=== PATIENT | male | born 1985 | race American Indian/Alaskan Native ===

== ENCOUNTER 2020-07-01 21:57 | Inpatient (IN) | payer OTHER ==
[2020-07-02 01:08] LABS: Bilirubin,Urine NEG (Negative); Blood,Urine SM (Negative); Color,Urine Yellow (Yellow); Mucus,Urine FEW /HPF; Protein,Urine <15 mg/dL mg/dL (Negative); Urobilinogen,Urine < 2.0 mg/dL (<2.0)
[2020-07-02 01:09] LABS: Basophils % (Auto) 0.3 % (0.0-1.8); Eosinophils # (Auto) 0.2 K/mm3 (0.0-0.4); Eosinophils % (Auto) 1.2 % (0.0-4.3); Hematocrit 45.7 % (35.5-45.6); Hemoglobin 15.3 gm/dl (11.8-15.2); Lymphocytes # (Auto) 1.5 K/mm3 (1.2-5.4); Lymphocytes % (Auto) 9.3 % (13.4-35.0); Mean Corpuscular HGB Conc 33 % (32-34); Mean Corpuscular Volume 86 fl (84-94); Monocytes # (Auto) 1.5 K/mm3 (0.0-0.8); Monocytes % (Auto) 9.2 % (0.0-7.3); Platelet Count 288 K/mm3 (140-440); Red Cell Distribution Width 13.2 % (13.2-15.2)
[2020-07-02 01:27] LABS: Alanine Aminotransferase 80 units/L (7-56); Albumin 4.8 g/dL (3.9-5); BUN/Creatinine Ratio 14; Blood Urea Nitrogen 11 mg/dL (9-20); Calcium 10.1 mg/dL (8.4-10.2); Hemolysis Index 10
[2020-07-02] MEDS ORDERED: SODIUM CHLORIDE 0.9% 1000 ML 1,000 ML IV ONE ×3 (01:45→02:56)
[2020-07-02] MEDS ORDERED: ONDANSETRON 4 MG/2 ML INJ IV ONE (01:45)
[2020-07-02] MEDS ORDERED: MORPHINE 4 MG/1 ML INJ IV ONE (01:45)
--- NOTE | 2020-07-02 02:45 | Cat Scan Report ---
CT ABDOMEN AND PELVIS WITH CONTRAST HISTORY: Right lower quadrant abdominal pain COMPARISON: None TECHNIQUE: Routine abdominal and pelvic CT exam performed following intravenous contrast administrat ion. The patient received 100 ml IV Omnipaque 300. All CT scans at this location are performed using CT dose reduction for ALARA by means of automated exposure control. FINDINGS: CT ABDOMEN: Lung Bases: No significant abnormality. Liver: No significant abnormality. Biliary: No significant abnormality. Spleen: No significant abnormality. Unenlarged. Pancreas: No significant abnormality. Adrenals: No significant abnormality. Kidneys: No significant abnormality. Lymphatics: No lymphadenopathy. Vasculature: No significant abnormality. Bowel/Peritoneum: There is wall thickening and inflammatory fat stranding of the appendix consistent with appendicitis. There is no evidence of perforation or other complication. CT PELVIC: : No significant abnormality. Lymphatics: No lymphadenopathy. Osseous Structures: No aggressive appearing osseous lesions. Additional Findings: None IMPRESSION: 1. Acute appendicitis without complication. Signer Name: Too Fowler MD Signed: 07/02/2020 2:40 AM Workstation Name: [email or web address]
[2020-07-02] MEDS ORDERED: PIPERACIL/TAZOBACTA 4.5/NS 100 4.5 GM/100 ML VIAL IV ONE (02:48)
[2020-07-02] MEDS ORDERED: ACETAMINOPHEN 500 MG TAB PO ONE (02:55)
--- NOTE | 2020-07-02 03:14 | Emergency Department Report ---
ED Abdominal Pain HPI - General Chief Complaint: Abdominal Pain Stated Complaint: ABD PAINS Time Seen by Provider: 07/02/20 01:18 Source: patient Mode of arrival: Ambulatory Limitations: No Limitations - History of Present Illness Initial Comments: Patient is a 35-year-old male who presents for right lower quadrant pain x3 days. Pain is described as 7/10 sharp with no radiation. Pain is exacerbated by p.o. intake and movement. Pain is relieved by nothing tried. Patient denies medical history, denies smoking has occasional drinker. Last p.o. intake was Tuesday 3 days ago. Last vomiting was this afternoon clear liquid per patient. Patient works as construction spring. MD Complaint: abdominal pain Migration to: no migration Severity scale (0 -10): 3 - Related Data Allergies Allergy/AdvReac Type Severity Reaction Status Date / Time No Known Allergies Allergy Unverified 07/01/20 23:46 ED Review of Systems ROS: Stated complaint: ABD PAINS Other details as noted in HPI Constitutional: chills, fever Eyes: denies: eye pain, eye discharge, vision change ENT: denies: ear pain, throat pain Respiratory: denies: cough, shortness of breath, wheezing Cardiovascular: denies: chest pain, palpitations Endocrine: no symptoms reported Gastrointestinal: abdominal pain, nausea, vomiting. denies: diarrhea, constipation, melena Genitourinary: denies: urgency, dysuria Musculoskeletal: denies: back pain, joint swelling, arthralgia Skin: denies: rash, lesions Neurological: denies: headache, weakness, paresthesias Psychiatric: denies: anxiety, depression Hematological/Lymphatic: denies: easy bleeding, easy bruising ED Past Medical Hx - Past Medical History Previous Medical History?: No - Surgical History Past Surgical History?: No - Social History Smoking Status: Never Smoker Substance Use Type: None ED Physical Exam - General Limitations: No Limitations General appearance: alert, in no apparent distress - Head Head exam: Present: atraumatic, normocephalic - Eye Eye exam: Present: normal appearance, EOMI Pupils: Present: normal accommodation - ENT ENT exam: Present: mucous membranes moist - Neck Neck exam: Present: normal inspection, full ROM. Absent: tenderness - Respiratory Respiratory exam: Present: normal lung sounds bilaterally. Absent: respiratory distress, wheezes, stridor, chest wall tenderness - Cardiovascular Cardiovascular Exam: Present: regular rate, normal rhythm, normal heart sounds - GI/Abdominal GI/Abdominal exam: Present: soft, tenderness (RLQ ), rebound, normal bowel sounds. Absent: guarding, rigid, bruit, hernia - Expanded GI/Abdominal Exam Expanded GI/Abdominal exam: Present: psoas sign, obturator sign, heel tap sign, Rovsing's sign, tenderness at [place]. Absent: Son's sign, ascites - Rectal Rectal exam: Present: deferred - Extremities Exam Extremities exam: Present: normal inspection - Back Exam Back exam: Present: normal inspection, full ROM. Absent: tenderness, CVA tenderness (R), CVA tenderness (L), vertebral tenderness - Neurological Exam Neurological exam: Present: alert, oriented X3, CN II-XII intact - Psychiatric Psychiatric exam: Present: normal affect, normal mood - Skin Skin exam: Present: warm, dry, intact, normal color. Absent: rash ED Course Vital Signs 07/01/20 23:43 Temperature 101.9 F H Pulse Rate 81 Respiratory 18 Rate Blood Pressure 166/102 O2 Sat by Pulse 100 Oximetry ED Medical Decision Making - Lab Data Result diagrams: 07/02/20 00:29 07/02/20 00:29 Labs 07/01/20 07/02/20 07/02/20 Unknown 00: 00:29 WBC 16.5 H RBC 5.30 H Hgb 15.3 H Hct 45.7 H MCV 86 MCH 29 MCHC 33 RDW 13.2 Plt Count 288 Lymph % (Auto) 9.3 L [place] % (Auto) 9.2 H Eos % (Auto) 1.2 Baso % (Auto) 0.3 Lymph # (Auto) 1.5 [place] # (Auto) 1.5 H Eos # (Auto) 0.2 Baso # (Auto) 0.0 Seg Neutrophils % 80.0 H Seg Neutrophils # 13.2 H Sodium 141 Potassium 4.1 Chloride 101.2 Carbon Dioxide 27 Anion Gap 17 BUN 11 Creatinine 0.8 Estimated GFR > 60 BUN/Creatinine Ratio 14 Glucose 112 H Lactic Acid Calcium 10.1 Total Bilirubin 0.80 AST 52 H ALT 80 H Alkaline Phosphatase 74 Total Protein 8.3 H Albumin 4.8 Albumin/Globulin Ratio 1.4 Lipase 28 Urine Color Yellow Urine Turbidity Clear Urine pH 7.0 Ur Specific [place] 1.010 Urine Protein <15 mg/dl Urine Glucose (UA) Neg Urine Ketones Neg Urine Blood Sm Urine Nitrite Neg Urine Bilirubin Neg Urine Urobilinogen < 2.0 Ur Leukocyte Esterase Neg Urine WBC (Auto) 1.0 Urine RBC (Auto) 4.0 U Epithel Cells (Auto) < 1.0 Urine Mucus Few 07/02/20 02:14 WBC RBC Hgb Hct MCV MCH MCHC RDW Plt Count Lymph % (Auto) [place] % (Auto) Eos % (Auto) Baso % (Auto) Lymph # (Auto) [place] # (Auto) Eos # (Auto) Baso # (Auto) Seg Neutrophils % Seg Neutrophils # Sodium Potassium Chloride Carbon Dioxide Anion Gap BUN Creatinine Estimated GFR BUN/Creatinine Ratio Glucose Lactic Acid 1.70 Calcium Total Bilirubin AST ALT Alkaline Phosphatase Total Protein Albumin Albumin/Globulin Ratio Lipase Urine Color Urine Turbidity Urine pH Ur Specific [place] Urine Protein Urine Glucose (UA) Urine Ketones Urine Blood Urine Nitrite Urine Bilirubin Urine Urobilinogen Ur Leukocyte Esterase Urine WBC (Auto) Urine RBC (Auto) U Epithel Cells (Auto) Urine Mucus - Radiology Data Radiology results: report reviewed, image reviewed Findings Reporting MD: Too Fowler Dictation Time: July 02, 2020 01:40 6Th Grade Teacher: Not available Chest Pain Coordinator Date: CT ABDOMEN AND PELVIS WITH CONTRAST HISTORY: Right lower quadrant abdominal pain COMPARISON: None TECHNIQUE: Routine abdominal and pelvic CT exam performed following intravenous contrast administration. The patient received 100 ml IV Omnipaque 300. All CT scans at this location are performed using CT dose reduction for ALARA by means of automated exposure control. FINDINGS: CT ABDOMEN: Lung Bases: No significant abnormality. Liver: No significant abnormality. Biliary: No significant abnormality. Spleen: No significant abnormality. Unenlarged. Pancreas: No significant abnormality. Adrenals: No significant abnormality. Kidneys: No significant abnormality. Lymphatics: No lymphadenopathy. Vasculature: No significant abnormality. Bowel/Peritoneum: There is wall thickening and inflammatory fat stranding of the appendix consistent with appendicitis. There is no evidence of perforation or other complication. CT PELVIC: : No significant abnormality. Lymphatics: No lymphadenopathy. Osseous Structures: No aggressive appearing osseous lesions. Additional Findings: None IMPRESSION: 1. Acute appendicitis without complication. Signer Name: Too Fowler MD Signed: 07/02/2020 1:40 AM Workstation Name: [id number] - Medical Decision Making CT abdomen pelvis consistent with acute appendicitis, CBC with WBCs at 16, patient is febrile at 101.9. Nausea is controlled with Zofran IV pain is controlled with morphine 4 mg IV patient has received 2 L normal saline will maintain continuous IV fluids at 125 cc an hour. Lactic acid is 1.7. Consulted general surgery Dr. Burnette. Consult recommendation admit to hospitalist will take to surgery in a.m. Advises Zosyn IV piggyback. Pain control continues IV fluids n.p.o. Discussed treatment plan in depth with patient. Patient verbalizes agreement and understanding with same. Consulted hospitalist at this time for admission Dr Cast advises: Pt care handoff to ED colleague at this time. pt verbalizes and agreement and understanding with treatment plan. Awaiting Surgery Consult with Dr Burnette in am for for acute appendicitis. Critical care attestation.: If time is entered above; I have spent that time in minutes in the direct care of this critically ill patient, excluding procedure time. ED Disposition Clinical Impression: Appendicitis, acute Qualifiers: Acute appendicitis type: unspecified acute appendicitis type Qualified Code(s): K35.80 - Unspecified acute appendicitis Disposition: OP ADMIT IP TO THIS HOSP Is pt being admited?: Yes Does the pt Need Aspirin: No Condition: Stable
[2020-07-02] MEDS ORDERED: ONDANSETRON 4 MG/2 ML INJ IV PRN ×2 (04:48→13:53)
[2020-07-02] MEDS ORDERED: ACETAMINOPHEN 325 MG TAB PO PRN (04:48)
--- NOTE | 2020-07-02 04:53 | History and Physical Report ---
History of Present Illness Date of examination: 07/02/20 Date of admission: 07/02/20 03:05 Chief complaint: Abdominal pain History of present illness: 35-year-old male presented to the emergency room today complaining of abdominal pain. Abdominal pain is said to be in the lower abdomen and has been ongoing for the past 3 days. He has had associated nausea and vomiting and he has not been able to tolerate oral intake. Abdominal pain is made worse by p.o. intake. He denies any fever or chills, no chest pain or shortness of breath, denies any diarrhea or constipation, denies any hematuria or dysuria, denies any bright red blood per rectum. Patient denies any sick contacts and no recent travel. Denies any contact with anyone with COVID-19. Upon arrival in the emergency room patient had a fever 101.9 F. He had a leukocytosis of 16.5 Work-up today including CT scan of the abdomen and pelvis reveals acute appendicitis without any complications. Dr. Burnette the general surgeon has been consulted by the ER physician. Patient has been placed on IV fluid and empiric IV antibiotics and made n.p.o. Past History Past Medical History: No medical history Past Surgical History: No surgical history Social history: no significant social history Family history: no significant family history Medications and Allergies Allergies Allergy/AdvReac Type Severity Reaction Status Date / Time No Known Allergies Allergy Verified 07/02/20 04:50 Active Meds: Active Medications Sodium Chloride (Nacl 0.9% 1000 Ml) 1,000 mls @ 125 mls/hr IV ONCE ONE Stop: 07/02/20 10:55 Review of Systems Constitutional: no fever, no chills Ears, nose, mouth and throat: no nasal congestion, no sore throat Cardiovascular: no chest pain, no palpitations Respiratory: no cough, no shortness of breath Gastrointestinal: abdominal pain, nausea, vomiting, no diarrhea Genitourinary Male: no dysuria, no hematuria, no flank pain Musculoskeletal: no neck pain, no low back pain Integumentary: no rash, no pruritis Neurological: no headaches, no confusion Psychiatric: no anxiety, no depression Exam - Constitutional Vitals: Temp Pulse Resp BP Pulse Ox 99.4 F 54 L 16 132/83 99 07/02/20 04:37 07/02/20 04:37 07/02/20 04:37 07/02/20 04:37 07/02/20 04:37 General appearance: Present: no acute distress, well-nourished - EENT Eyes: Present: PERRL, EOM intact. Absent: scleral icterus ENT: hearing intact, clear oral mucosa, dentition normal - Neck Neck: Present: supple, normal ROM - Respiratory Respiratory effort: normal Respiratory: bilateral: CTA - Cardiovascular Rhythm: regular Heart Sounds: Present: S1 & S2. Absent: gallop, systolic murmur, diastolic murmur, rub - Extremities Extremities: no ischemia, pulses intact, pulses symmetrical, No edema, Full ROM Peripheral Pulses: within normal limits - Abdominal General gastrointestinal: Present: soft, tender, normal bowel sounds. Absent: mass Localized gastrointestinal: tender: RLQ, guarding: RLQ - Integumentary Integumentary: Present: clear, warm, dry - Musculoskeletal Musculoskeletal: strength equal bilaterally - Psychiatric Psychiatric: appropriate mood/affect, intact judgment & insight, memory intact, cooperative - Neurologic Neurologic: CNII-XII intact, no focal deficits, moves all extremities Results - Labs CBC & Chem 7: 07/02/20 00:29 07/02/20 00:29 Labs: Abnormal lab results 07/02/20 07/02/20 Range/Units 00:29 00:29 WBC 16.5 H (4.5-11.0) K/mm3 RBC 5.30 H (3.65-5.03) M/mm3 Hgb 15.3 H (11.8-15.2) gm/dl Hct 45.7 H (35.5-45.6) % Lymph % (Auto) 9.3 L (13.4-35.0) % [place] % (Auto) 9.2 H (0.0-7.3) % [place] # (Auto) 1.5 H (0.0-0.8) K/mm3 Seg Neutrophils % 80.0 H (40.0-70.0) % Seg Neutrophils # 13.2 H (1.8-7.7) K/mm3 Glucose 112 H (75-100) mg/dL AST 52 H (5-40) units/L ALT 80 H (7-56) units/L Total Protein 8.3 H (6.3-8.2) g/dL Assessment and Plan - Patient Problems (1) Acute appendicitis Current Visit: Yes Status: Acute Qualifiers: Acute appendicitis type: unspecified acute appendicitis type Qualified Code(s): K35.80 - Unspecified acute appendicitis Plan to address problem: Patient has been made n.p.o. Will place patient on IV fluid and empiric IV antibiotics. General surgeon has been consulted for evaluation and recommendation. (2) DVT prophylaxis Current Visit: Yes Status: Acute Plan to address problem: Placed on sequential compression device. (3) Full code status Current Visit: Yes Status: Acute
[2020-07-02] MEDS: MORPHINE 2 MG/1 ML INJ IV PRN (06:13)
[2020-07-02] MEDS: SODIUM CHLORIDE 0.9% 1000 ML 1,000 ML IV SCH ×2 (06:13→18:04)
[2020-07-02] MEDS: PIPERACIL/TAZOBACTA 4.5/NS 100 4.5 GM/100 ML VIAL IV SCH ×2 (09:17→18:04)
[2020-07-02] MEDS ORDERED: SCOPOLAMINE TRANSDERMAL PATCH 72 HR TD NR (10:40)
--- NOTE | 2020-07-02 10:41 | Consultation ---
History of Present Illness Consult date: 07/02/20 Reason for consult: abdominal pain (35 yo male with 2 days of constant RLQ pain. Pain began in the umbilical area. No nausea, vomiting, fever, chills, melena or hematochezia. Pain is made worse by eating.) Past History Past Medical History: No medical history Past Surgical History: No surgical history Social history: no significant social history Family history: no significant family history Medications and Allergies Allergies Allergy/AdvReac Type Severity Reaction Status Date / Time No Known Allergies Allergy Verified 07/02/20 04:50 Home Medications Medication Instructions Recorded Confirmed Last Taken Type No Known Home Medications [No 07/02/20 07/02/20 Unknown History Reported Home Medications] Active Meds: Active Medications Acetaminophen (Tylenol) 650 mg PO Q4H PRN PRN Reason: Pain MILD(1-3)/Fever >100.5/KEYS Heparin Sodium (Porcine) (Heparin) 5,000 unit SUB-Q Q12HR STACI Sodium Chloride (Nacl 0.9% 1000 Ml) 1,000 mls @ 125 mls/hr IV ONCE ONE Stop: 07/02/20 10:55 Last Admin: 07/02/20 09:24 Dose: Not Given Documented by: Sodium Chloride (Nacl 0.9% 1000 Ml) 1,000 mls @ 125 mls/hr IV DIRECT STACI Last Admin: 07/02/20 06:13 Dose: 125 mls/hr Documented by: Piperacillin Sod/Tazobactam Sod (Zosyn/Ns 4.5gm/100ml) 4.5 gm in 100 mls @ 200 mls/hr IV Q8H STACI; Protocol Last Admin: 07/02/20 09:17 Dose: 200 mls/hr Documented by: Morphine Sulfate (Morphine) 2 mg IV Q4H PRN PRN Reason: Pain, Moderate (4-6) Last Admin: 07/02/20 06:13 Dose: 2 mg Documented by: Ondansetron HCl (Zofran) 4 mg IV Q8H PRN PRN Reason: Nausea And Vomiting Sodium Chloride (Sodium Chloride Flush Syringe 10 Ml) 10 ml IV BID STACI Last Admin: 07/02/20 09:18 Dose: 10 ml Documented by: Sodium Chloride (Sodium Chloride Flush Syringe 10 Ml) 10 ml IV PRN PRN PRN Reason: LINE FLUSH Review of Systems All systems: negative (none) Exam Vital Signs Temp Pulse Resp BP Pulse Ox 101.9 F H 81 18 166/102 100 07/01/20 23:43 07/01/20 23:43 07/01/20 23:43 07/01/20 23:43 07/01/20 23:43 - General physical appearance Positive: well developed, well nourished, no distress - Eyes Positive: PERRL, normal occular movement - ENT Positive: normal pinna, normal nares, normal mucosa, no hearing loss, no congestion - Neck Positive: no masses, no bruits, trachea midline, no venous distension - Respiratory Positive: normal expansion, normal respiratory effort, clear to auscultation - Cardiovascular Rhythm: regular Heart Sounds: Present: S1 & S2. Absent: rub, click - Extremities Extremities: no ischemia, pulses symmetrical, No edema - Breasts Breasts: deferred - Abdomen Abdomen: Present: soft, bowel sounds hypoactive (Mildly tender in the RLQ without rebound or guarding) - Genitourinary Male Genitourinary: deferred - Integumentary no rash, no growths, no abnormal pigmentation - Neurologic Neurologic: alert and oriented to time, place and person, motor strength and sensation are grossly intact - Musculoskeletal normal gait, normal posture - Psychiatric Psychiatric: appropriate mood/affect, intact judgment & insight Results - Labs 07/02/20 00:29 07/02/20 00:29 Abnormal lab results 07/02/20 07/02/20 Range/Units 00:29 00:29 WBC 16.5 H (4.5-11.0) K/mm3 RBC 5.30 H (3.65-5.03) M/mm3 Hgb 15.3 H (11.8-15.2) gm/dl Hct 45.7 H (35.5-45.6) % Lymph % (Auto) 9.3 L (13.4-35.0) % [place] % (Auto) 9.2 H (0.0-7.3) % [place] # (Auto) 1.5 H (0.0-0.8) K/mm3 Seg Neutrophils % 80.0 H (40.0-70.0) % Seg Neutrophils # 13.2 H (1.8-7.7) K/mm3 Glucose 112 H (75-100) mg/dL AST 52 H (5-40) units/L ALT 80 H (7-56) units/L Total Protein 8.3 H (6.3-8.2) g/dL Diabetes panel 07/02/20 Range/Units 00:29 Sodium 141 (137-145) mmol/L Potassium 4.1 (3.6-5.0) mmol/L Chloride 101.2 (98-107) mmol/L Carbon Dioxide 27 (22-30) mmol/L BUN 11 (9-20) mg/dL Creatinine 0.8 (0.8-1.3) mg/dL Glucose 112 H (75-100) mg/dL Calcium 10.1 (8.4-10.2) mg/dL AST 52 H (5-40) units/L ALT 80 H (7-56) units/L Alkaline Phosphatase 74 (35-129) units/L Total Protein 8.3 H (6.3-8.2) g/dL Albumin 4.8 (3.9-5) g/dL Calcium panel 07/02/20 Range/Units 00:29 Calcium 10.1 (8.4-10.2) mg/dL Albumin 4.8 (3.9-5) g/dL Pituitary panel 07/02/20 Range/Units 00:29 Sodium 141 (137-145) mmol/L Potassium 4.1 (3.6-5.0) mmol/L Chloride 101.2 (98-107) mmol/L Carbon Dioxide 27 (22-30) mmol/L BUN 11 (9-20) mg/dL Creatinine 0.8 (0.8-1.3) mg/dL Glucose 112 H (75-100) mg/dL Calcium 10.1 (8.4-10.2) mg/dL Adrenal panel 07/02/20 Range/Units 00:29 Sodium 141 (137-145) mmol/L Potassium 4.1 (3.6-5.0) mmol/L Chloride 101.2 (98-107) mmol/L Carbon Dioxide 27 (22-30) mmol/L BUN 11 (9-20) mg/dL Creatinine 0.8 (0.8-1.3) mg/dL Glucose 112 H (75-100) mg/dL Calcium 10.1 (8.4-10.2) mg/dL Total Bilirubin 0.80 (0.1-1.2) mg/dL AST 52 H (5-40) units/L ALT 80 H (7-56) units/L Alkaline Phosphatase 74 (35-129) units/L Total Protein 8.3 H (6.3-8.2) g/dL Albumin 4.8 (3.9-5) g/dL - Imaging Additional studies: CT abd/pelvis - C/w appendicitis Assessment and Plan - Patient Problems (1) Acute appendicitis Current Visit: Yes Status: Acute Qualifiers: Acute appendicitis type: unspecified acute appendicitis type Qualified Code(s): K35.80 - Unspecified acute appendicitis Plan to address problem: 1) NPO 2) IV Zosyn 3) Lap appy when OR room is available 4) Repeat CBC & BMP 5) SQ Heparin
[2020-07-02] MEDS: HEPARIN 5,000 UNIT/1 ML VIAL SUB-Q SCH ×2 (10:49→22:17)
[2020-07-02 11:11] LABS: Basophils % (Auto) 0.3 % (0.0-1.8); Eosinophils # (Auto) 0.1 K/mm3 (0.0-0.4); Eosinophils % (Auto) 0.7 % (0.0-4.3); Hemoglobin 14.9 gm/dl (11.8-15.2); Lymphocytes # (Auto) 1.4 K/mm3 (1.2-5.4); Lymphocytes % (Auto) 11.5 % (13.4-35.0); Mean Corpuscular HGB Conc 35 % (32-34); Mean Corpuscular Volume 85 fl (84-94); Monocytes # (Auto) 1.4 K/mm3 (0.0-0.8); Platelet Count 228 K/mm3 (140-440); Red Blood Count 5.04 M/mm3 (3.65-5.03)
[2020-07-02 11:21] LABS: BUN/Creatinine Ratio 13; Blood Urea Nitrogen 10 mg/dL (9-20); Hemolysis Index 10
[2020-07-02] MEDS ORDERED: MIDAZOLAM 2 MG/2 ML INJ IV ONE (13:42)
[2020-07-02] MEDS ORDERED: fentaNYL 100 MCG/2 ML INJ IV ONE (13:51)
[2020-07-02] MEDS ORDERED: HYDROmorphone 1 MG/1 ML INJ IV PRN (13:53)
--- NOTE | 2020-07-02 13:53 | Anesthesia Day of Surgery ---
Anesthesia Day of Surgery - Day of Surgery Patient Examined: Yes Patient H&P Reviewed: Yes Patient is NPO: Yes
--- NOTE | 2020-07-02 13:53 | Anesthesia Consultation ---
Anesthesia Consult and Med Hx Date of service: 07/02/20 - Airway Anesthetic Teeth Evaluation: Good ROM Head & Neck: Adequate Mental/Hyoid Distance: Adequate Mallampati Class: Class II Intubation Access Assessment: Probably Good - Pulmonary Exam CTA: Yes - Cardiac Exam Cardiac Exam: RRR - Pre-Operative Health Status ASA Pre-Surgery Classification: ASA1 Proposed Anesthetic Plan: General - Pulmonary Hx Smoking: No Hx Respiratory Symptoms: No - Cardiovascular System Hx Hypertension: No Hx Heart Attack/AMI: No - Central Nervous System CVA: No - Endocrine Hx Renal Disease: No Hx Liver Disease: No Hx Insulin Dependent Diabetes: No Hx Non-Insulin Dependent Diabetes: No Hx Thyroid Disease: No - Hematic Hx Anemia: No - Other Systems Hx Obesity: Yes (BMI 35) - Additional Comments Anesthesia Medical History Comments: No prior GA. No FHx anesthetic complications. Scheduled for lap appy.
[2020-07-02] MEDS ORDERED: LACTATED RINGERS 1,000 ML IV SCH (14:00)
[2020-07-02] MEDS ORDERED: ROCURONIUM 50 MG/5 ML INJ IV ONE (14:23)
[2020-07-02] MEDS ORDERED: fentaNYL 100 MCG/2 ML INJ ONE (14:23)
[2020-07-02] MEDS ORDERED: propofoL 200 MG/20 ML VIAL IV ONE (14:24)
[2020-07-02] MEDS ORDERED: KETOROLAC 30 MG/1 ML INJ ONE (14:50)
[2020-07-02] MEDS ORDERED: dexAMETHasone 20 MG/5 ML VIAL ONE (14:50)
[2020-07-02] MEDS ORDERED: ONDANSETRON 4 MG/2 ML INJ ONE (14:50)
[2020-07-02] MEDS ORDERED: HYDROmorphone 1 MG/1 ML INJ ONE (14:51)
[2020-07-02] MEDS ORDERED: BUPIVACAINE-EPINEPHRINE/PF 0.5%-1:200,000 (30 ML) VIAL INFILTRATI ONE ×2 (14:54→15:10)
[2020-07-02] MEDS ORDERED: GLYCOPYRROLATE 0.4 MG/2 ML INJ ONE ×2 (15:00→15:50)
[2020-07-02] MEDS ORDERED: NEOSTIGMINE 10MG/10 ML INJ MDV ONE (15:50)
--- NOTE | 2020-07-02 16:10 | Procedure Note ---
Date of procedure: 07/02/20 Pre-op diagnosis: acute appendicitis Post-op diagnosis: same Procedure: Laparoscopic appendectomy Description of procedure: Pt was placed supine on the OR table. GETA was administered. Abdomen was prepped and draped. Proposed trocar incisions were infiltrated with 10 ml of 0.5% Marcaine with epinephrine. A small infraumbilical incision was made and the peritoneal cavity carefully entered. A 12 mm Margaret port was inserted into the peritoneal cavity and pneumoperitoneum established. 5 mm ports were inserted into the peritoneal cavity in the suprapubic area and LLQ under direct vision without incident. Pt was placed in a Trendelenburg position with the right side rotated upward. The appendix was identified and was obviously gangrenous but without perforation. Mesoappendix was divided with an endo-VÍCTOR stapler. Base of the appendix was then divided with a blue load endo-VÍCTOR stapler. Appendix was placed in an endobag and the endobag and appendix removed via the infraumbilical incision. Repeat laparoscopy was performed revealing the staple lines to be intact with no bleeding from the areas of dissection. 5 mm ports were removed with no bleeding from the port entry sites. Pneumoperitoneum was released as the Margaret port was removed. The infraumbilical fascial defect was repaired with 2 interrupted sutures of 0-Vicryl. Skin incisions were closed with running, subcuticular sutures of 4-0 Monocryl. Skin glue was applied to the incisions. Pt tolerated the procedure well. Pt was extubated in the OR and was taken to PACU in stable condition. Findings: The appendix was gangrenous but not perforated. Anesthesia: GETA Surgeon: HERNÁN SALAS Estimated blood loss: minimal Pathology: list (Appendix) Specimen disposition: to lab Condition: stable Disposition: PACU
--- NOTE | 2020-07-02 18:02 | Post Anesthesia Evaluation ---
- Post Anesthesia Evaluation Patient Participated: Yes Airway Patent: Yes Stable Respiratory Function: Yes Nausea/Vomiting: No Temp > 96.8F: Yes Pain Manageable: Yes Adequeate Hydration: Yes Anesthesia Complications: No
--- NOTE | 2020-07-02 18:52 | Progress Note ---
Assessment and Plan - Patient Problems (1) Current Visit: No Plan to address problem: S/p Appendectomy (2) Current Visit: No Plan to address problem: On Scd's and GI prophylaxis (3) Current Visit: No Plan to address problem: Will discharge today if surgery clears Subjective Date of service: 07/03/20 Principal diagnosis: Appendicitis Interval history: S/p Appendectomy.Post op doing well.No complications.No fever. Objective - Constitutional Vitals: Vital Signs - 12hr 07/02/20 07/02/20 07/02/20 13:24 13:36 14:16 Temperature 99.4 F 100.5 F H Pulse Rate 69 75 Respiratory 22 20 20 Rate Blood Pressure 138/95 Blood Pressure 127/84 [Left] O2 Sat by Pulse 97 Oximetry 07/02/20 07/02/20 07/02/20 16:15 16:20 16:25 Temperature 98 F Pulse Rate 87 82 81 Respiratory 12 12 12 Rate Blood Pressure 103/59 103/63 93/70 Blood Pressure [Left] O2 Sat by Pulse 97 100 100 Oximetry 07/02/20 07/02/20 07/02/20 16:30 16:45 17:00 Temperature 98.4 F Pulse Rate 86 84 73 Respiratory 12 12 12 Rate Blood Pressure 104/74 104/80 113/83 Blood Pressure [Left] O2 Sat by Pulse 100 99 98 Oximetry 07/02/20 07/02/20 17:15 18:06 Temperature 98.3 F Pulse Rate 77 71 Respiratory 12 22 Rate Blood Pressure 111/81 117/68 Blood Pressure [Left] O2 Sat by Pulse 97 95 Oximetry General appearance: Present: no acute distress, well-nourished - EENT Eyes: PERRL, EOM intact ENT: hearing intact, clear oral mucosa Ears: bilateral: normal - Neck Neck: supple, normal ROM - Respiratory Respiratory effort: normal Respiratory: bilateral: CTA - Breasts Breasts: normal - Cardiovascular Heart rate: 78 Rhythm: regular Heart Sounds: Present: S1 & S2. Absent: gallop, rub Extremities: pulses intact, No edema, normal color, Full ROM - Gastrointestinal General gastrointestinal: Present: soft, non-tender, non-distended, normal bowel sounds Localized gastrointestinal: tender: RLQ (Resolved) - Genitourinary Male genitourinary: normal - Integumentary Integumentary: clear, warm, dry - Musculoskeletal Musculoskeletal: 1, strength equal bilaterally - Neurologic Neurologic: moves all extremities - Psychiatric Psychiatric: memory intact, appropriate mood/affect, intact judgment & insight - Allied health notes Allied health notes reviewed: nursing, case management - Labs CBC & Chem 7: 07/03/20 05:10 07/03/20 05:10 Labs: Abnormal lab results 07/02/20 07/02/20 07/02/20 Range/Units 00:29 00:29 10:39 WBC 16.5 H 12.5 H (4.5-11.0) K/mm3 RBC 5.30 H 5.04 H (3.65-5.03) M/mm3 Hgb 15.3 H (11.8-15.2) gm/dl Hct 45.7 H (35.5-45.6) % MCHC 35 H (32-34) % RDW 13.0 L (13.2-15.2) % Lymph % (Auto) 9.3 L 11.5 L (13.4-35.0) % [place] % (Auto) 9.2 H 11.0 H (0.0-7.3) % [place] # (Auto) 1.5 H 1.4 H (0.0-0.8) K/mm3 Seg Neutrophils % 80.0 H 76.5 H (40.0-70.0) % Seg Neutrophils # 13.2 H 9.5 H (1.8-7.7) K/mm3 Glucose 112 H (75-100) mg/dL AST 52 H (5-40) units/L ALT 80 H (7-56) units/L Total Protein 8.3 H (6.3-8.2) g/dL 07/02/20 Range/Units 10:39 WBC (4.5-11.0) K/mm3 RBC (3.65-5.03) M/mm3 Hgb (11.8-15.2) gm/dl Hct (35.5-45.6) % MCHC (32-34) % RDW (13.2-15.2) % Lymph % (Auto) (13.4-35.0) % [place] % (Auto) (0.0-7.3) % [place] # (Auto) (0.0-0.8) K/mm3 Seg Neutrophils % (40.0-70.0) % Seg Neutrophils # (1.8-7.7) K/mm3 Glucose 117 H (75-100) mg/dL AST (5-40) units/L ALT (7-56) units/L Total Protein (6.3-8.2) g/dL
[2020-07-03] MEDS: PIPERACIL/TAZOBACTA 4.5/NS 100 4.5 GM/100 ML VIAL IV SCH ×2 (02:21→09:41)
[2020-07-03] MEDS: MORPHINE 2 MG/1 ML INJ IV PRN (02:23)
[2020-07-03] MEDS: SODIUM CHLORIDE 0.9% 1000 ML 1,000 ML IV SCH (02:27)
[2020-07-03 06:23] VITALS: BP 98/61
[2020-07-03 06:29] LABS: Basophils % (Auto) 0.1 % (0.0-1.8); Hematocrit 37.9 % (35.5-45.6); Hemoglobin 12.6 gm/dl (11.8-15.2); Lymphocytes # (Auto) 1.2 K/mm3 (1.2-5.4); Lymphocytes % (Auto) 8.6 % (13.4-35.0); Mean Corpuscular HGB Conc 33 % (32-34); Mean Corpuscular Volume 86 fl (84-94); Monocytes # (Auto) 0.8 K/mm3 (0.0-0.8); Monocytes % (Auto) 5.6 % (0.0-7.3); Platelet Count 251 K/mm3 (140-440); Red Blood Count 4.43 M/mm3 (3.65-5.03); Red Cell Distribution Width 13.2 % (13.2-15.2)
[2020-07-03 06:35] LABS: INR 1.17 (0.87-1.13)
[2020-07-03 06:41] LABS: BUN/Creatinine Ratio 16; Blood Urea Nitrogen 13 mg/dL (9-20); Calcium 8.6 mg/dL (8.4-10.2); Hemolysis Index 8
[2020-07-03] MEDS: HEPARIN 5,000 UNIT/1 ML VIAL SUB-Q SCH (10:00)
--- NOTE | 2020-07-03 11:08 | Progress Note ---
Assessment and Plan - Patient Problems (1) Acute appendicitis Current Visit: Yes Status: Acute Qualifiers: Acute appendicitis type: unspecified acute appendicitis type Qualified Code(s): K35.80 - Unspecified acute appendicitis Plan to address problem: S/p Appendectomy (2) DVT prophylaxis Current Visit: Yes Status: Acute Plan to address problem: On Scd's and GI prophylaxis (3) Discharge planning issues Current Visit: Yes Status: Acute Plan to address problem: Will discharge today if surgery clears Subjective Date of service: 07/02/20 Principal diagnosis: Appendicitis Interval history: S/p Appendectomy.Post op doing well.No complications.No fever. Objective - Constitutional Vitals: Vital Signs - 12hr 07/03/20 07/03/20 02:23 05:21 Temperature 98.5 F Pulse Rate 60 Respiratory 18 18 Rate Blood Pressure 98/61 O2 Sat by Pulse 97 Oximetry General appearance: Present: no acute distress, well-nourished - EENT Eyes: PERRL, EOM intact ENT: hearing intact, clear oral mucosa Ears: bilateral: normal - Neck Neck: supple, normal ROM - Respiratory Respiratory effort: normal Respiratory: bilateral: CTA - Breasts Breasts: normal - Cardiovascular Rhythm: regular Heart Sounds: Present: S1 & S2. Absent: gallop, rub Extremities: pulses intact, No edema, normal color, Full ROM - Gastrointestinal General gastrointestinal: Present: soft, non-tender, non-distended, normal bowel sounds - Genitourinary Male genitourinary: normal - Integumentary Integumentary: clear, warm, dry - Musculoskeletal Musculoskeletal: 1, strength equal bilaterally - Neurologic Neurologic: moves all extremities - Psychiatric Psychiatric: memory intact, appropriate mood/affect, intact judgment & insight - Labs CBC & Chem 7: 07/03/20 05:10 07/03/20 05:10 Labs: Abnormal lab results 07/02/20 07/02/20 07/03/20 Range/Units 10:39 10:39 05:10 WBC 12.5 H 13.7 H (4.5-11.0) K/mm3 RBC 5.04 H (3.65-5.03) M/mm3 MCHC 35 H (32-34) % RDW 13.0 L (13.2-15.2) % Lymph % (Auto) 11.5 L 8.6 L (13.4-35.0) % [place] % (Auto) 11.0 H (0.0-7.3) % [place] # (Auto) 1.4 H (0.0-0.8) K/mm3 Seg Neutrophils % 76.5 H 85.7 H (40.0-70.0) % Seg Neutrophils # 9.5 H 11.7 H (1.8-7.7) K/mm3 PT (12.2-14.9) Sec. INR (0.87-1.13) Glucose 117 H (75-100) mg/dL 07/03/20 07/03/20 Range/Units 05:10 05:10 WBC (4.5-11.0) K/mm3 RBC (3.65-5.03) M/mm3 MCHC (32-34) % RDW (13.2-15.2) % Lymph % (Auto) (13.4-35.0) % [place] % (Auto) (0.0-7.3) % [place] # (Auto) (0.0-0.8) K/mm3 Seg Neutrophils % (40.0-70.0) % Seg Neutrophils # (1.8-7.7) K/mm3 PT 15.0 H (12.2-14.9) Sec. INR 1.17 H (0.87-1.13) Glucose 117 H (75-100) mg/dL
--- NOTE | 2020-07-03 11:13 | Discharge Summary ---
Providers - Providers Date of Admission: 07/02/20 03:05 Date of discharge: 07/03/20 Attending physician: JUSTIN LAL 07/02/20 03:09 Consult to Physician [CONS] Stat Comment: done Consulting Provider: HERNÁN SALAS Physician Instructions: Reason For Exam: appendicitis Primary care physician: [employer] Hospitalization Condition: Stable Hospital course: Subjective Date of service: 07/03/2020 Principal diagnosis: Appendicitis Interval history: S/p Appendectomy.Post op doing well.No complications.No fever. Patient to be discharged on Cipro 500 twice daily for 10 days Status post appendectomy yesterday--- postop patient doing very well (1) Acute appendicitis Current Visit: Yes Status: Acute Qualifiers: Acute appendicitis type: unspecified acute appendicitis type Qualified Code(s): K35.80 - Unspecified acute appendicitis Plan to address problem: S/p Appendectomy Patient doing well Patient to be discharged on Cipro 500 twice daily (2) DVT prophylaxis Current Visit: Yes Status: Acute Plan to address problem: On Scd's and GI prophylaxis (3) Discharge planning issues Current Visit: Yes Status: Acute Plan to address problem: Patient cleared by surgery for discharge Disposition: DC-01 TO HOME OR SELFCARE - Discharge Diagnoses (1) Acute appendicitis Status: Acute Qualifiers: Acute appendicitis type: unspecified acute appendicitis type Qualified Code(s): K35.80 - Unspecified acute appendicitis (2) DVT prophylaxis Status: Acute (3) Discharge planning issues Status: Acute Core Measure Documentation - Palliative Care Palliative Care/ Comfort Measures: Not Applicable - Core Measures Any of the following diagnoses?: none Exam - Constitutional Vitals: Temp Pulse Resp BP Pulse Ox 98.5 F 60 18 98/61 97 07/03/20 05:21 07/03/20 05:21 07/03/20 05:21 07/03/20 05:21 07/03/20 05:21 General appearance: Present: no acute distress, well-nourished - EENT Eyes: Present: PERRL ENT: hearing intact, clear oral mucosa - Neck Neck: Present: supple, normal ROM - Respiratory Respiratory effort: normal Respiratory: bilateral: CTA - Cardiovascular Heart rate: 78 Rhythm: regular Heart Sounds: Present: S1 & S2. Absent: rub, click - Extremities Extremities: no ischemia, pulses symmetrical, No edema Peripheral Pulses: within normal limits - Abdominal General gastrointestinal: Present: soft, non-tender, non-distended, normal bowel sounds Male genitourinary: Present: normal - Rectal Rectal Exam: deferred - Integumentary Integumentary: Present: clear, warm, dry - Musculoskeletal Musculoskeletal: gait normal, strength equal bilaterally - Psychiatric Psychiatric: appropriate mood/affect, intact judgment & insight - Neurologic Neurologic: CNII-XII intact, moves all extremities - Allied Health Allied health notes reviewed: nursing, case management Plan Activity: no restrictions Diet: advance as tolerated Follow up with: PRIMARY CAREMD [Primary Care Provider] - 3-5 Days HERNÁN SALAS MD [Staff Physician] - 7 Days
== END 2020-07-03 15:04 | disposition home or self-care (01) | DRG 343 ==
LOC: ED 21:57 → 3A 07-02 03:05
PROVIDERS: ADMIT Internal Medicine Geriatric Medicine; ATTEND Internal Medicine
PROC: 0DTJ4ZZ Resection of Appendix, Percutaneous Endoscopic Approach (ICD-10-PCS; principal; 2020-07-02)
DX: K35.80 Unspecified acute appendicitis (principal)
CPT/HCPCS: 36415; 74177; 80048; 80053; 81001; 82140; 83690; 85025; 85610; 87040; 88304; 93005; 96365; G0378; J1100; J1170; J1644; J1885; J2250; J2270; J2405; J2543; J2704; J2710; J3010; J7030; J7120; Q9967